=== PATIENT | female | born 1960 | race Caucasian/White ===

== ENCOUNTER → 2016-12-05 | Emergency (ER) ==
[2016-12-05 13:13] VITALS: BP 171/74
--- NOTE | 2016-12-05 14:13 | PROVIDER DOCUMENTATION ---
HPI-Musculoskeletal Pain/Inj - GENERAL Chief Complaint: General Adult Stated Complaint: FALL Time Seen by Provider: 12/05/16 13:50 Source: patient - HX OF PRESENT ILLNESS-MUSKULOSKELTAL Nature of Presenting Problem: 56 y/o WF c/o bilateral ear pain and a lesion under the right breast. States both the ear pain and the lesion have been there about 1 week. Has a mass on the left shoulder dx in [place], states she is scheduled for a biopsy and they don't know what it is, but is possibly cancer. States she has lost about 15 pounds in 2 months unintentionally. has had a non-productive cough. Denies fevers or chills. Denies changes in hearing or discharge from the ears. Review of Systems - Adult - REVIEW OF SYSTEMS - ADULT Constitutional: reports: no symptoms reported. denies: chills, fever, fatique Eyes: reports: no symptoms reported. denies: blurred vision, double vision, eye pain Ears, Nose, Mouth & Throat: reports: see HPI, ear pain. denies: ear discharge, hearing loss, tinnitus, nose pain, throat pain Cardiovascular: reports: no symptoms reported. denies: chest pain, palpitations Respiratory: reports: see HPI, cough. denies: shortness of breath, wheezing Gastrointestinal: reports: no symptoms reported. denies: abdominal pain, diarrhea, nausea, vomiting Genitourinary: reports: no symptoms reported. denies: dysuria, discharge, frequency Musculoskeletal: reports: no symptoms reported. denies: bone pain, back pain, joint pain, muscle aches Integumentary: reports: see HPI, skin sores/ulcer. denies: rash Neurological: reports: no symptoms reported. denies: headache/migraines Psychiatric: reports: no symptoms reported Endocrine: reports: no symptoms reported Hematologic/Lymphatic: reports: no symptoms reported Allergic/Immunologic: reports: no symptoms reported All Other Systems: Reviewed and Negative Past History - Adult - PAST MEDICAL HISTORY-ADULT Review of Records: reports: Old Records Reviewed, Nursing Assessment Review, Medications Reviewed, Social history reviewed & non-contributory. Major Childhood Illnesses: reports: denies history Cardiovascular: reports: denies history Respiratory: reports: denies history Gastrointestinal: reports: denies history Obstetrical/Gynecological: reports: denies history Genitourinary: reports: denies history Musculoskeletal: reports: denies history Neurological: reports: denies history Endocrine/Immune: reports: denies history Other Conditions: reports: denies history - FAMILY HISTORY Family History: reviewed, not pertinent Physical Exam-Injury Related - Physical Exam-Injury Related General Appearance: appears well, alert, no apparent distress Integumentary: normal color, warm/dry Psych/Mental Status: AL, normal mood/affect, normal thought content, normal thought process, oriented x 3 Progress - PLAN OF CARE/RESULTS Progress/Plan/Lab Results: [facility] Vital Signs Temp Pulse Resp BP Pulse Ox 12/05/16 13:08 97.8 F 84 18 171/74 100 Departure - Departure Time of Disposition Order: 14:00 DIAGNOSIS: Left against medical advice Disposition: [place] [id number] Certified Medical Emergency: Emergent Condition: Stable Attestation - Physician/ Mid-level Attestation Patient care was provided by Mid-level provider (CLAM GRADER/PA):: Yes Mid-level provider:: Melba Bolivar Mid-level documentation review:: The Mid-level provider documentation, treatment plan and medical decision making was reviewed by the physician who agrees with all treatment and medical decision making by the [facility].
== END | disposition left against medical advice (07) ==
LOC: ED 12:32
DX: H92.03 Otalgia, bilateral (principal); R05 Cough; L98.9 Disorder of the skin and subcutaneous tissue, unspecified
CPT/HCPCS: 99282

== ENCOUNTER 2016-12-11 13:26 | Emergency (ER) ==
[2016-12-11 13:37] VITALS: BP 162/82
== END 2016-12-11 13:39 | disposition left against medical advice (07) ==
LOC: P.ED 13:26
DX: R03.0 Elevated blood-pressure reading, without diagnosis of hypertension (principal)

== ENCOUNTER 2017-02-06 09:36 | Emergency (ER) ==
[2017-02-06] MEDS ORDERED: NORCO-10 PO ONE (12:03)
--- NOTE | 2017-02-06 12:25 | PROVIDER DOCUMENTATION ---
HPI-Musculoskeletal Pain/Inj - GENERAL Source: patient, family - HX OF PRESENT ILLNESS-MUSKULOSKELTAL Quality of Pain: reports: aching Severity in ED: moderate Onset/Duration: last night Timing: still present Modifying Factors: improves with: nothing Any recent injury?: Yes (fall ) Locality of Occurance: Home Similar Symptoms Previously?: Yes Recently seen or treated by another doctor?: No - FALL INJURY Location of Pain/Injury: reports: lower extremity (R hip) Pain Radiation: reports: feet (R), legs (lower) (R), legs (upper) (R) Reason for Fall: reports: lost balance (due to shaking) Symptoms prior to fall:: denies: fever/chills/sweaty, chest pain, rapid heart rate, cough, diarrhea, vomiting, GI bleed, dizzy/lightheaded, headache, seizure Loss of Consciousness: unsure Injury Associated Symptoms: reports: chest pain (R side of chest due to prior fall), shortness of breath, unable to bear weight (R), weakness, trouble walking . denies: arm pain, back/neck pain, diaphoresis, dizziness, headaches, joint pain, muscle aches, nausea, puncture wound, sensory/motor loss, snap/crack/pop sensation, pain with inspiration, vomiting - HIP/PELVIS PAIN/INJURY Hip Pain Location: reports: hip (R) Pain Radiation: reports: feet (R), lower legs (R), upper legs (R) Context / Method of Injury: reports: fall Associated Symptoms: reports: weakness in legs/feet (r). denies: loss of bladder control, loss of bowel control, lower back pain, muscle spasms, numbness in legs/feet, sensory/motor loss, tingling in legs/feet - LOWER EXTREMITY PAIN/INJURY Lower Extremities Pain: hip: right, leg: right, knee: right, thigh: right, foot : right, ankle: right, heel: right Context / Method of Injury: reports: fell Associated Symptoms: reports: weakness in legs/feet (R). denies: loss of bladder control, loss of bowel control, lower back pain, muscle spasms, numbness in legs/feet, sensory/motor loss, tingling in legs/feet <Mary Jacobson - Last Filed: 02/06/17 13:28> <Gage Tyler - Last Filed: 02/06/17 13:42> - GENERAL Chief Complaint: Fall Stated Complaint: FALL Time Seen by Provider: 02/06/17 11:26 - HX OF PRESENT ILLNESS-MUSKULOSKELTAL Nature of Presenting Problem: Pt is 56 y/o F presents to the ED with post fall. Pt states falling last night. Pt states leg and hands started to shake and it caused her to fall. Pt states pain in R hip radiating down to R foot. Pt states she is unsure of hitting back of head. Pt states having bulging disk in back of neck. Pt states having a fall prior to the one last night. Pt states she started shaking with that fall and fell and hit coffee table with chest. Pt states R side chest pain from that fall and hit port in R side of chest. Pt's family member states in the process of transferring Pt's PCP to a doctor in [place] due to current PCP being in [place]. 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 Pt also states solid food becoming stuck in throat after eating. (aMry Jacobson) Review of Systems - Adult - REVIEW OF SYSTEMS - ADULT Constitutional: denies: chills, fever Eyes: denies: blurred vision, double vision Ears, Nose, Mouth & Throat: denies: ear pain, nose pain, throat pain Cardiovascular: reports: chest pain (R side due to prior fall), irregular heart rate (tachy). denies: heart murmur Respiratory: reports: shortness of breath. denies: cough, wheezing Gastrointestinal: denies: abdominal pain, diarrhea, nausea, vomiting Genitourinary: denies: dysuria, hematuria Musculoskeletal: reports: joint pain (R hip pain). denies: bone pain, neck pain Integumentary: denies: hives, itching Neurological: denies: dizziness/vertigo, headache/migraines Psychiatric: reports: no symptoms reported Endocrine: reports: no symptoms reported Hematologic/Lymphatic: reports: no symptoms reported Allergic/Immunologic: reports: no symptoms reported All Other Systems: Reviewed and Negative <Mary Jacobson - Last Filed: 02/06/17 13:28> Past History - Adult - PAST MEDICAL HISTORY-ADULT Review of Records: reports: Nursing Assessment Review, Medications Reviewed, Social history reviewed & non-contributory. Major Childhood Illnesses: reports: denies history Cardiovascular: reports: HTN Respiratory: reports: denies history Gastrointestinal: reports: denies history Obstetrical/Gynecological: reports: denies history Genitourinary: reports: denies history Musculoskeletal: reports: denies history Neurological: reports: denies history Endocrine/Immune: reports: Diabetes Other Conditions: reports: denies history - PRIOR SURGERIES/PROCEDURES Surgical/Procedure History: reports: appendectomy, cholecystectomy, hysterectomy , tonsillectomy - IMMUNIZATION STATUS Childhood Immunizations: See Nurse Assessment Flu Vaccine: See Nurse Assessment - FAMILY HISTORY Family History: reviewed, not pertinent - SOCIAL HISTORY Smoking: cigarettes, greater than 1 pack/day Provider spent 3-5 mins advising pt. on dangers of tobacco.: Discussed manners to quit use, and f/u contacts for add'l counseling. Substance Use: denies Living Situation: family <Mary Jacobson - Last Filed: 02/06/17 13:28> Physical Exam-Injury Related - Physical Exam-Injury Related Initial Vital Signs Reviewed: Yes General Appearance: alert, no apparent distress. negative: appears well (ill in appearance) Eyes: PERRL/EOMI, pink conjunctivae, fundi clear, no AV nicking Head, Ears, Nose, Mouth & Throat: normocephalic/atraumatic, moist mucous membranes, normal ENT inspection, TMs normal, pharynx normal Neck: non-tender, full range of motion, supple, normal inspection Respiratory: chest non-tender, lungs clear, normal breath sounds, no pleuratic chest pain, no respiratory distress, no accessory muscle use Cardiovascular: normal peripheral pulses, no edema, no gallop, no JVD, no murmur , tachycardia Chest/Breast: tenderness (sternum) Peripheral Pulses: dorsalis-pedis (R): 2+, dorsalis-pedis (L): 2+ Abdominal Exam: normal bowel sounds, non tender, soft, no organomegaly, no pulsatile mass Lymphatic: no adenopathy Back Exam: normal inspection, no CVA tenderness, no vertebral tenderness Extremity: no pedal edema, no calf tenderness, normal capillary refill, tenderness (R sacroiliac tenderness) Integumentary: normal color, warm/dry Neurologic: grossly normal Psych/Mental Status: normal mood/affect, oriented x 3 <Mary Jacobson - Last Filed: 02/06/17 13:28> Progress - XRAY 1 XRAY: Bilateral XRAY Study: Chest, Ribs Impression: Normal XRAY Interpretation: no fx present and port looks normal per Dr. Tyler 2 XRAY: Right XRAY Study: Pelvis, Hip Impression: Normal XRAY Interpretation: no fx present per Dr. Tyler <Mary Jacobson - Last Filed: 02/06/17 13:28> <Gage Tyler - Last Filed: 02/06/17 13:42> - PLAN OF CARE/RESULTS Progress/Plan/Lab Results: Orders Category Date Time Status RIBS UNILAT W/PA CHEST RIGHT [RAD] Stat Exams 02/06/17 12:01 Taken XRAY PELVIS W/HIP 2-3VW RT [RAD] Stat Exams 02/06/17 12:01 Taken Hydrocodone/APAP 10 mg/325 mg [Bimble-10] Med 02/06/17 12:03 Discontinued 1 each PO NOW ONE Vital Signs - 24 hr 02/06/17 10:01 Temperature 98 F Pulse Rate 101 H Respiratory 18 Rate Blood Pressure 173/92 O2 Sat by Pulse 99 Oximetry (Mary Jacobson) due to presentation, was accessed in the [facility] site, at that time, was the initial reveal that she was on Bimble. (She did admit to it on repeat questioning about her meds) (Gage Tyler) Departure <Mary Jacobson - Last Filed: 02/06/17 13:28> - Departure Time of Disposition Order: 13:35 Certified Medical Emergency: Emergent <Gage Tyler - Last Filed: 02/06/17 13:42> - Departure DIAGNOSIS: Contusion of rib on right side Qualifiers: Encounter type: initial encounter Qualified Code(s): S20.211A - Contusion of right front wall of thorax, initial encounter Contusion, hip Qualifiers: Encounter type: initial encounter Laterality: right Qualified Code(s): S70.01XA - Contusion of right hip, initial encounter Disposition: HOME 01 Condition: Good Additional Instructions: ED Follow Up Instructions: You have been treated by a care provider in the Emergency Department. These instructions are being provided to you so you can have an understanding of how to care for yourself upon discharge. Upon discharge from the Emergency Department, you are responsible for making arrangements for follow-up care by a physician of your choice. Take all prescribed medications as directed. Return to the Emergency Department immediately for any new or worsening symptoms. You may call the Physician Referral phone number at [phone] to obtain a list of Physicians who are taking new patients. May take the Percocet for pain INSTEAD of your Bimble. DO NOT take both Prescriptions: Oxycodone HCl/Acetaminophen [Percocet 5-325 mg Tablet] 1 each PO Q6H PRN PRN # 12 tablet PRN Reason: Pain Referrals: None,PCP [Primary Care Provider] - Instructions: Chest Contusion, [id number], Contusion Attestation - Scribe Verification/Attestation Scribe:: Mary Jacobson Acting as Scribe for:: Gage Tyler Scribe documention review:: This chart was documented by a scribe and accurately reflects the service the provider performed and the decisions made by the provider. <Mary Jacobson - Last Filed: 02/06/17 13:28> Physician Attestation - Physician Attestation I, the provider, attest to the following statement:: Gage Tyler Physician documentation Attestation:: This documentation recorded by the scribe accurately reflects the service I personally performed and the decisions made by me. <Gage Tyler - Last Filed: 02/06/17 13:42>
[2017-02-06 13:55] VITALS: BP 160/75
--- NOTE | 2017-02-06 14:39 | Diag Imaging Result Document ---
PROCEDURE NAME: XRAY PELVIS W/HIP 2-3VW RT - 02/06/2017 PLAIN RADIOGRAPH OF THE PELVIS AND RIGHT HIP, 3 VIEWS: COMPARISON: None available. FINDINGS: There is no evidence of fracture or dislocation. The hip joint spaces appear to be preserved. There is a small sclerotic focus involving the proximal right femur that likely represents a cortical bone island. Surrounding soft tissues are essentially unremarkable. IMPRESSION: No evidence of acute osseous abnormality.
--- NOTE | 2017-02-06 14:44 | Diag Imaging Result Document ---
PROCEDURE NAME: RIBS UNILAT W/PA CHEST RIGHT - 02/06/2017 PLAIN RADIOGRAPH OF THE CHEST AND RIGHT RIBS, 6 VIEWS: COMPARISON: None available. FINDINGS: No definite acute rib fracture or intrinsic osseous lesion can be identified. The lungs are clear. There is no definite pleural fluid collection or pneumothorax. A right chest port is in place with the tip projecting over the lower SVC in the expected position. IMPRESSION: No evidence of acute rib fracture by plain radiograph.
== END 2017-02-06 14:00 | disposition home or self-care (01) ==
LOC: P.ED 09:36
DX: S20.211A Contusion of right front wall of thorax, initial encounter (principal); S70.01XA Contusion of right hip, initial encounter; M25.551 Pain in right hip; M79.671 Pain in right foot; M79.661 Pain in right lower leg; M79.651 Pain in right thigh; R07.89 Other chest pain; R06.02 Shortness of breath; M62.81 Muscle weakness (generalized); R26.2 Difficulty in walking, not elsewhere classified; R00.0 Tachycardia, unspecified; I10 Essential (primary) hypertension; E11.9 Type 2 diabetes mellitus without complications; F17.210 Nicotine dependence, cigarettes, uncomplicated; Z79.4 Long term (current) use of insulin; Z79.899 Other long term (current) drug therapy; Z71.6 Tobacco abuse counseling; W18.39XA Other fall on same level, initial encounter; W22.8XXA Striking against or struck by other objects, initial encounter
CPT/HCPCS: 71101

== ENCOUNTER 2017-02-18 08:03 | Emergency (ER) ==
[2017-02-18] MEDS ORDERED: D5W 500 ML IV ONE (08:39)
--- NOTE | 2017-02-18 08:51 | PROVIDER DOCUMENTATION ---
HPI-Syncope/Dizziness - General Chief Complaint: Low Blood Sugar Stated Complaint: hypogulcemia Time Seen by Provider: 02/18/17 08:28 Source: patient Allergies/Adverse Reactions: Patient Allergies Allergy/AdvReac Type Severity Reaction Status Date / Time methocarbamol [From Robaxin] Allergy Unknown Verified 02/18/17 08:06 tramadol Allergy VOMITING Verified 02/18/17 08:06 Home Medications: Home Medication List Medication Instructions Recorded Confirmed Last Taken Type Escitalopram Oxalate [Lexapro] 10 mg PO DAILY 01/09/17 02/18/17 01/09/17 History Gabapentin 900 mg PO 4XDAY 01/09/17 02/18/17 01/09/17 History Insulin Aspart [Novolog] 10 unit SQ AC 01/09/17 02/18/17 01/09/17 History Lisinopril 40 mg PO DAILY 01/09/17 02/18/17 01/09/17 History Pantoprazole Sodium [Protonix] 40 mg PO DAILY 01/09/17 02/18/17 01/09/17 History Trazodone [Desyrel] 50 mg PO QHS 01/09/17 02/18/17 01/08/17 History Baclofen 10 mg PO PRN PRN 02/06/17 02/18/17 Unknown History Hydrocodone/Acetaminophen [[place] 1 each PO PRN PRN 02/06/17 02/18/17 Unknown History 7.5-325 Tablet] - History of Present Illness-Syncope/Dizzy Nature of Presenting Problem: Pt is 56 y/o F presents to the ED via EMS with syncopal episode. Pt states she has a procedure today at the pain clinic for nerve pain and she was told to not eat or drink for 8 hrs prior. Pt states blood sugar bottomed out and she passed out. Pt states this happened the last time she had a procedure. Pt denies head injury. Pt states niece found her. If witnessed syncope, by whom?: Pt's niece Prior Episodes: reports: recent history Onset/Duration: reports: just prior to arrival Timing: reports: improving Position/Activity at time of episode: reports: standing Symptoms prior to episode: denies: headache, lightheaded, visual disturbance, nausea/vomiting, chest pain, racing heart, abdominal pain, back pain, confusion , diaphoresis, injury, recent head trauma, rapid heart beat Context: reports: lost consciousness, became unresponsive Loss of Consciousness: prolonged (minutes) Location of injury. (If syncope resulted in an injury.): reports: none Current Symptoms: reports: none/feels normal Recently Seen Here or By Another Healthcare Provider: Yes Review of Systems - Adult - REVIEW OF SYSTEMS - ADULT Constitutional: reports: no symptoms reported Eyes: reports: no symptoms reported Ears, Nose, Mouth & Throat: reports: no symptoms reported Cardiovascular: reports: no symptoms reported Respiratory: reports: no symptoms reported Gastrointestinal: reports: no symptoms reported Genitourinary: reports: no symptoms reported Musculoskeletal: reports: no symptoms reported Integumentary: reports: no symptoms reported Neurological: reports: syncope. denies: dizziness/vertigo, headache/migraines, slurred speech Psychiatric: reports: no symptoms reported Endocrine: reports: no symptoms reported Hematologic/Lymphatic: reports: no symptoms reported Allergic/Immunologic: reports: no symptoms reported All Other Systems: Reviewed and Negative Past History - Adult - PAST MEDICAL HISTORY-ADULT Review of Records: reports: Nursing Assessment Review, Medications Reviewed, Social history reviewed & non-contributory. Major Childhood Illnesses: reports: denies history Cardiovascular: reports: HTN Respiratory: reports: denies history Gastrointestinal: reports: denies history Obstetrical/Gynecological: reports: uterine/ovarian cancer Genitourinary: reports: denies history Musculoskeletal: reports: denies history Neurological: reports: denies history Endocrine/Immune: reports: Diabetes Other Conditions: reports: denies history - PRIOR SURGERIES/PROCEDURES Surgical/Procedure History: reports: appendectomy, cholecystectomy, hysterectomy , tonsillectomy - IMMUNIZATION STATUS Childhood Immunizations: See Nurse Assessment Flu Vaccine: See Nurse Assessment - FAMILY HISTORY Family History: reviewed, not pertinent - SOCIAL HISTORY Smoking: cigarettes, less than 1 pack/day Provider spent 3-5 mins advising pt. on dangers of tobacco.: Discussed manners to quit use, and f/u contacts for add'l counseling. Substance Use: denies Living Situation: family Physical Exam-General - PHYSICAL EXAM-ADULT Initial Vital Signs Reviewed: Yes - CONSTITUTIONAL General Appearance: appears well, alert, no apparent distress, slow to respond - EYES Eyes: PERRL/EOMI, pink conjunctivae, fundi clear, no AV nicking - HEAD, EARS, NOSE, MOUTH & THROAT HENMT: normocephalic/atraumatic, moist mucous membranes, normal ENT inspection, TMs normal, pharynx normal - NECK Neck: non-tender, full range of motion, supple, normal inspection - RESPIRATORY Respiratory: chest non-tender, lungs clear, normal breath sounds, no pleuratic chest pain, no respiratory distress, no accessory muscle use - CARDIOVASCULAR Cardiovascular: normal peripheral pulses, regular rate, rhythm, no edema, no gallop, no JVD, no murmur - GASTROINTESTINAL (ABDOMEN) Abdominal Exam: normal bowel sounds, non tender, soft, no organomegaly, no pulsatile mass - LYMPHATIC Lymphatic: no adenopathy - MUSCULOSKELETAL Back Exam: normal inspection, no CVA tenderness, no vertebral tenderness Extremity: normal range of motion, non-tender, normal gait, normal inspection, no pedal edema, no calf tenderness, normal capillary refill - SKIN Integumentary: normal color, normal turgor, warm/dry - NEUROLOGIC Neurologic: grossly normal - PSYCHIATRIC Psych/Mental Status: normal mood/affect, oriented x 3 Progress - PLAN OF CARE/RESULTS Progress/Plan/Lab Results: Laboratory Tests 02/18/17 08:06 POC Glucose 108 H Orders Category Date Time Status Cardiac Monitoring DIRECTED Care 02/18/17 08:40 Active Finger Stick Blood Sugar (ED) DIRECTED Care 02/18/17 08:40 Active Saline Loc NOW Care 02/18/17 08:40 Active CHEST-1 VIEW [RAD] Stat Exams 02/18/17 08:40 Ordered HEAD W/O CONTRAST [CT] Stat Exams 02/18/17 08:40 Ordered ABG [RESP] Routine Lab 02/18/17 08:40 Ordered ALCOHOL BLOOD Stat Lab 02/18/17 08:40 Ordered CBC WITH ELECTRONIC DIFF [HEME] Stat Lab 02/18/17 08:40 Ordered CK PROFILE [SP CHEM] Stat Lab 02/18/17 08:40 Ordered COMPREHENSIVE METABOLIC PANEL [CHEM] Stat Lab 02/18/17 08:40 Ordered LACTATE, PLASMA [CHEM] Stat Lab 02/18/17 08:40 Ordered PROTIME WITH INR PL [COAG] Stat Lab 02/18/17 08:[address] [COAG] Stat Lab 02/18/17 08:40 Ordered TROPONIN T Stat Lab 02/18/17 08:[address] W/POSS RFLX CULT [URINALYSIS] Stat Lab 02/18/17 08:40 Uncollected URINE DRUG SCREEN PL Stat Lab 02/18/17 08:40 Uncollected Dextrose 5%-Water Inj [D5w] 500 ml Med 02/18/17 08:39 Active IV 100 mls/hr Pulse Oximetry Stat Oth 02/18/17 08:40 Active EKG [EKG] Stat Ther 02/18/17 08:40 Ordered Vital Signs - 24 hr 02/18/17 08:09 Temperature 98.3 F Pulse Rate 64 Respiratory 19 Rate Blood Pressure 161/81 O2 Sat by Pulse 95 Oximetry Laboratory Tests 02/18/17 02/18/17 02/18/17 08:06 08:30 08:58 WBC 6.72 RBC 3.84 L Hgb 10.6 L Hct 34.0 L MCV 88.5 MCH 27.6 MCHC 31.2 L RDW Std Deviation 16.1 H Plt Count 271 MPV 9.4 Immature Gran % (Auto) 1.3 H Neut % (Auto) 65.3 Lymph % (Auto) 24.4 [place] % (Auto) 6.7 Eos % (Auto) 1.9 Baso % (Auto) 0.4 Immature Gran # (Auto) 0.09 H Neut # (Auto) 4.38 Lymph # (Auto) 1.64 [place] # (Auto) 0.45 Eos # (Auto) 0.13 Baso # (Auto) 0.03 Specimen Type ARTERIAL Sample Site R RADIAL pH 7.37 pCO2 57 H* pO2 62 HCO3 29.7 H Base Excess 6.4 H Oxyhemoglobin 87.4 L* ABG O2 Sat (Calculated) 13.4 L ABG O2 Saturation 93.5 L ABG Carboxyhemoglobin 6.40 H* ABG Methemoglobin 0.0 A-a O2 Difference 16.0 Total Hemoglobin 10.9 L Lactate 1.00 Blood Gas Modality ROOM AIR FiO2 % 21.0 POC Glucose 108 H Laboratory Tests 02/18/17 02/18/17 02/18/17 08:06 08:30 08:58 WBC RBC Hgb Hct MCV MCH MCHC RDW Std Deviation Plt Count MPV Immature Gran % (Auto) Neut % (Auto) Lymph % (Auto) [place] % (Auto) Eos % (Auto) Baso % (Auto) Immature Gran # (Auto) Neut # (Auto) Lymph # (Auto) [place] # (Auto) Eos # (Auto) Baso # (Auto) PT INR APTT (Factor Assay) Specimen Type ARTERIAL Sample Site R RADIAL pH 7.37 pCO2 57 H* pO2 62 HCO3 29.7 H Base Excess 6.4 H Oxyhemoglobin 87.4 L* ABG O2 Sat (Calculated) 13.4 L ABG O2 Saturation 93.5 L ABG Carboxyhemoglobin 6.40 H* ABG Methemoglobin 0.0 A-a O2 Difference 16.0 Total Hemoglobin 10.9 L Lactate 1.00 Blood Gas Modality ROOM AIR FiO2 % 21.0 Sodium 140 Potassium 3.8 Chloride 103 Carbon Dioxide 28 Anion Gap 9 BUN 18 Creatinine 0.6 Estimated GFR/1.73 m2 > 60 BUN/Creatinine Ratio 30 Glucose 84 POC Glucose 108 H Calculated Osmolality 280 Calcium 8.5 L Total Bilirubin 0.20 AST 65 H ALT 38 H Alkaline Phosphatase 212 H Creatine Kinase 38 Troponin T Total Protein 5.8 L Albumin 3.2 L Globulin 3.0 Albumin/Globulin Ratio 1.0 Plasma Lactate Urine Source Urine Color Urine Clarity Urine pH Ur Specific [place] Urine Protein Urine Ketones Urine Blood Urine Nitrite Urine Bilirubin Urine Urobilinogen Urine WBC Urine Glucose Urine Opiates Screen Ur Oxycodone Screen Urine Methadone Screen Ur Barbituates Screen Ur Tricyclics Screen Ur Phencyclidine Scrn Ur Amphetamines Screen U Methamphetamines Scrn Urine MDMA Screen U Benzodiazepines Scrn Urine Cocaine Screen U Cannabinoids Screen Plasma/Serum Ethyl Alc 02/18/17 02/18/17 02/18/17 08:58 08:58 08:58 WBC RBC Hgb Hct MCV MCH MCHC RDW Std Deviation Plt Count MPV Immature Gran % (Auto) Neut % (Auto) Lymph % (Auto) [place] % (Auto) Eos % (Auto) Baso % (Auto) Immature Gran # (Auto) Neut # (Auto) Lymph # (Auto) [place] # (Auto) Eos # (Auto) Baso # (Auto) PT INR APTT (Factor Assay) Specimen Type Sample Site pH pCO2 pO2 HCO3 Base Excess Oxyhemoglobin ABG O2 Sat (Calculated) ABG O2 Saturation ABG Carboxyhemoglobin ABG Methemoglobin A-a O2 Difference Total Hemoglobin Lactate Blood Gas Modality FiO2 % Sodium Potassium Chloride Carbon Dioxide Anion Gap BUN Creatinine Estimated GFR/1.73 m2 BUN/Creatinine Ratio Glucose POC Glucose Calculated Osmolality Calcium Total Bilirubin AST ALT Alkaline Phosphatase Creatine Kinase Troponin T < 0.010 Total Protein Albumin Globulin Albumin/Globulin Ratio Plasma Lactate 1.0 Urine Source Urine Color Urine Clarity Urine pH Ur Specific [place] Urine Protein Urine Ketones Urine Blood Urine Nitrite Urine Bilirubin Urine Urobilinogen Urine WBC Urine Glucose Urine Opiates Screen Ur Oxycodone Screen Urine Methadone Screen Ur Barbituates Screen Ur Tricyclics Screen Ur Phencyclidine Scrn Ur Amphetamines Screen U Methamphetamines Scrn Urine MDMA Screen U Benzodiazepines Scrn Urine Cocaine Screen U Cannabinoids Screen Plasma/Serum Ethyl Alc 02/18/17 02/18/17 02/18/17 08:58 08:58 09:34 WBC 6.72 RBC 3.84 L Hgb 10.6 L Hct 34.0 L MCV 88.5 MCH 27.6 MCHC 31.2 L RDW Std Deviation 16.1 H Plt Count 271 MPV 9.4 Immature Gran % (Auto) 1.3 H Neut % (Auto) 65.3 Lymph % (Auto) 24.4 [place] % (Auto) 6.7 Eos % (Auto) 1.9 Baso % (Auto) 0.4 Immature Gran # (Auto) 0.09 H Neut # (Auto) 4.38 Lymph # (Auto) 1.64 [place] # (Auto) 0.45 Eos # (Auto) 0.13 Baso # (Auto) 0.03 PT 12.8 INR 0.93 APTT (Factor Assay) 27.5 Specimen Type Sample Site pH pCO2 pO2 HCO3 Base Excess Oxyhemoglobin ABG O2 Sat (Calculated) ABG O2 Saturation ABG Carboxyhemoglobin ABG Methemoglobin A-a O2 Difference Total Hemoglobin Lactate Blood Gas Modality FiO2 % Sodium Potassium Chloride Carbon Dioxide Anion Gap BUN Creatinine Estimated GFR/1.73 m2 BUN/Creatinine Ratio Glucose POC Glucose Calculated Osmolality Calcium Total Bilirubin AST ALT Alkaline Phosphatase Creatine Kinase Troponin T Total Protein Albumin Globulin Albumin/Globulin Ratio Plasma Lactate Urine Source CLEAN CATCH Urine Color YELLOW Urine Clarity CLEAR Urine pH 6.5 Ur Specific [place] 1.010 Urine Protein 2+(100 mg/dL) A Urine Ketones NEGATIVE Urine Blood NEGATIVE Urine Nitrite NEGATIVE Urine Bilirubin NEGATIVE Urine Urobilinogen NORMAL Urine WBC TRACE A Urine Glucose 3+(500 mg/dL) A Urine Opiates Screen Ur Oxycodone Screen Urine Methadone Screen Ur Barbituates Screen Ur Tricyclics Screen Ur Phencyclidine Scrn Ur Amphetamines Screen U Methamphetamines Scrn Urine MDMA Screen U Benzodiazepines Scrn Urine Cocaine Screen U Cannabinoids Screen Plasma/Serum Ethyl Alc 02/18/17 09:34 WBC RBC Hgb Hct MCV MCH MCHC RDW Std Deviation Plt Count MPV Immature Gran % (Auto) Neut % (Auto) Lymph % (Auto) [place] % (Auto) Eos % (Auto) Baso % (Auto) Immature Gran # (Auto) Neut # (Auto) Lymph # (Auto) [place] # (Auto) Eos # (Auto) Baso # (Auto) PT INR APTT (Factor Assay) Specimen Type Sample Site pH pCO2 pO2 HCO3 Base Excess Oxyhemoglobin ABG O2 Sat (Calculated) ABG O2 Saturation ABG Carboxyhemoglobin ABG Methemoglobin A-a O2 Difference Total Hemoglobin Lactate Blood Gas Modality FiO2 % Sodium Potassium Chloride Carbon Dioxide Anion Gap BUN Creatinine Estimated GFR/1.73 m2 BUN/Creatinine Ratio Glucose POC Glucose Calculated Osmolality Calcium Total Bilirubin AST ALT Alkaline Phosphatase Creatine Kinase Troponin T Total Protein Albumin Globulin Albumin/Globulin Ratio Plasma Lactate Urine Source Urine Color Urine Clarity Urine pH Ur Specific [place] Urine Protein Urine Ketones Urine Blood Urine Nitrite Urine Bilirubin Urine Urobilinogen Urine WBC Urine Glucose Urine Opiates Screen PRESUMPTIVE POSITIVE A Ur Oxycodone Screen NONE DETECTED Urine Methadone Screen NONE DETECTED Ur Barbituates Screen NONE DETECTED Ur Tricyclics Screen NONE DETECTED Ur Phencyclidine Scrn NONE DETECTED Ur Amphetamines Screen NONE DETECTED U Methamphetamines Scrn NONE DETECTED Urine MDMA Screen NONE DETECTED U Benzodiazepines Scrn PRESUMPTIVE POSITIVE A Urine Cocaine Screen NONE DETECTED U Cannabinoids Screen PRESUMPTIVE POSITIVE A Plasma/Serum Ethyl Alc - EKG 1 Time of EKG reading by physician:: 08:46 EKG Read and Signed by:: Va Galvin EKG Interpretation (*Must complete 3 of following elements*): Abnormal Rate: 62 Rhythm: normal sinus rhythm Comments: prolonged QT - XRAY 1 XRAY: Bilateral XRAY Study: Chest Impression: Normal XRAY Interpretation: stable exam - CT/MRI 1 CT Study: Head Impression: Normal CT Results: no evidence of acute disease Departure - Departure Time of Disposition Order: 10:30 DIAGNOSIS: Hypoglycemia Disposition: HOME 01 Certified Medical Emergency: Emergent Condition: Stable Additional Instructions: ED Follow Up Instructions: You have been treated by a care provider in the Emergency Department. These instructions are being provided to you so you can have an understanding of how to care for yourself upon discharge. Upon discharge from the Emergency Department, you are responsible for making arrangements for follow-up care by a physician of your choice. Take all prescribed medications as directed. Return to the Emergency Department immediately for any new or worsening symptoms. You may call the Physician Referral phone number at [phone] to obtain a list of Physicians who are taking new patients. Referrals: None,PCP [Primary Care Provider] - Attestation - Scribe Verification/Attestation Scribe:: Mary Jacobson Acting as Scribe for:: Va Galvin Scribe documention review:: This chart was documented by a scribe and accurately reflects the service the provider performed and the decisions made by the provider.
[2017-02-18 09:00] LABS: BE 6.4 mmoll (-3.0-3.0); BLOOD TYPE ARTERIAL; DRAW SITE R RADIAL; O2(CT) 13.4 mL/dL (15.0-23.0); PO2(98.6) 62 mmHg (60-100); SAMPLE BLOOD; SAO2 93.5 % (95.0-100.0); THB 10.9 g/dL (11.5-17.4); pH(98.6) 7.37 (7.35-7.45)
[2017-02-18 09:02] LABS: MODALITY ROOM AIR
[2017-02-18 09:03] LABS: PCO2(98.6) 57 mmHg (35-45)
[2017-02-18 09:06] LABS: MANUAL DIFF NEEDED? NO
[2017-02-18 09:07] LABS: BASO% 0.4 % (0.0-0.8); EOS# 0.13 X1000 (0.0-0.7); EOS% 1.9 % (0.0-10.0); HEMOGLOBIN 10.6 g/dL (12.0-16.0); IMM GRAN# 0.09 X1000 (0.0-0.04); IMM GRAN% 1.3 % (0.0-0.5); LYMPH# 1.64 X1000 (1.2-3.4); LYMPH% 24.4 % (20.5-51.1); MCH 27.6 PG (27-31); MCHC 31.2 g/dL (33-37); MCV 88.5 FL (81-99); MONO# 0.45 X1000 (0.11-0.59); MONO% 6.7 % (1.7-9.3); MPV 9.4 FL (7.4-10.4); NEUT% 65.3 % (42.2-75.2); PLT 271 X1000 (130-400); RBC 3.84 XMIL (4.2-5.4)
--- NOTE | 2017-02-18 09:07 | EKG Report ---
Test Performed on : 02/18/2017 08:46:57 AM Test Reason : AMS Blood Pressure : / mmHG Vent. Rate : 062 BPM Atrial Rate : 062 BPM P-R Int : 164 ms QRS Dur : 098 ms QT Int : 474 ms P-R-T Axes : 065 072 046 degrees QTc Int : 481 ms Normal sinus rhythm. Prolonged QT Abnormal ECG No previous ECGs available Unconfirmed Result
[2017-02-18 09:20] LABS: INR 0.93 (0.86-1.15); PROTIME 12.8 Seconds (12.1-15.5)
[2017-02-18 09:21] LABS: PTT PL 27.5 Seconds (22.6-43.9)
[2017-02-18 09:28] LABS: AGAP 9; ALBUMIN 3.2 g/dL (3.5-5.0); ALKALINE PHOSPHATASE 212 U/L (32-104); BUN 18 mg/dL (8-22); CALCIUM 8.5 mg/dL (8.8-10.2); CHLORIDE 103 mmol/L (98-107); CK PROFILE 38 U/L (24-173); COSMO 280; GOT 65 U/L (10-30); GPT 38 U/L (10-36); POTASSIUM 3.8 mmol/L (3.5-5.1); SODIUM 140 mmol/L (136-145); TCO2 28 mmol/L (25-35); TOTAL PROTEIN 5.8 g/dL (6.3-8.3)
[2017-02-18 09:49] LABS: URINE CULTURE PL NEEDED? NO; URINE SOURCE CLEAN CATCH
[2017-02-18 10:02] LABS: UR AMPHETAMINES QUAL NONE DETECTED (NONE DETECT); UR BARBITUATES QUAL NONE DETECTED (NONE DETECT); UR BENZODIAZEPIN QUAL PRESUMPTIVE POSITIVE (NONE DETECT); UR CANNABINOIDS QUAL PRESUMPTIVE POSITIVE (NONE DETECT); UR COCAINE QUAL NONE DETECTED (NONE DETECT); UR MDMA QUAL NONE DETECTED (NONE DETECT); UR METHADONE QUAL NONE DETECTED (NONE DETECT); UR METHAMPHETAMINE QUAL NONE DETECTED (NONE DETECT); UR OPIATES QUAL PRESUMPTIVE POSITIVE (NONE DETECT); UR OXYCODONE QUAL NONE DETECTED (NONE DETECT); UR PCP QUAL NONE DETECTED (NONE DETECT); UR TCA QUAL NONE DETECTED (NONE DETECT)
[2017-02-18 10:06] LABS: BILIRUBIN URINE NEGATIVE (NEGATIVE); BLOOD URINE NEGATIVE (NEGATIVE); CLARITY CLEAR (CLEAR); COLOR YELLOW; LEUKOCYTES URINE TRACE (NEGATIVE); NITRITE URINE NEGATIVE (NEGATIVE); PH URINE 6.5; PROTEIN URINE 2+(100 mg/dL) mg/dL (NEGATIVE); UROBILINOGEN URINE NORMAL
--- NOTE | 2017-02-18 10:20 | Diag Imaging Result Document ---
PROCEDURE NAME: HEAD W/O CONTRAST - 02/18/2017 CT OF THE HEAD WITHOUT CONTRAST: FINDINGS: There is generalized cerebral atrophy. There is no evidence of mass effect, bleed, or abnormal extra-axial fluid collection. The visualized paranasal sinuses are clear. The calvarium is intact. No previous studies. IMPRESSION: No evidence of acute disease.
[2017-02-18 10:29] LABS: URINE EPITHELIAL CELLS <10 /HPF (<10); URINE WBC <10 /HPF (<10)
--- NOTE | 2017-02-18 10:29 | Diag Imaging Result Document ---
PROCEDURE NAME: CHEST-1 VIEW - 02/18/2017 AP CHEST SINGLE-VIEW: COMPARISON: 02/06/2017. FINDINGS: No change in the right-sided Port-A-Cath. No pneumothorax. The lungs are well expanded. The heart is not enlarged. Mild increased interstitial markings similar to the prior study. No consolidation. No pleural effusions identified. IMPRESSION: Stable chest.
[2017-02-18 10:44] VITALS: BP 120/65
== END 2017-02-18 10:59 | disposition home or self-care (01) ==
LOC: P.ED 08:03
DX: E11.649 Type 2 diabetes mellitus with hypoglycemia without coma (principal); R94.31 Abnormal electrocardiogram [ECG] [EKG]; R55 Syncope and collapse; I10 Essential (primary) hypertension; F17.210 Nicotine dependence, cigarettes, uncomplicated; Z79.4 Long term (current) use of insulin; Z79.899 Other long term (current) drug therapy; Z71.6 Tobacco abuse counseling; Z85.40 Personal history of malignant neoplasm of unspecified female genital organ
CPT/HCPCS: 70450; 71010; 80053; 80305; 81001; 82550; 82805; 82948; 83605; 84484; 85025; 85610; 85730; 93005; 96360; G0480; J7060; P9612; 80320